=== PATIENT | female | born 1960 | race Caucasian/White ===

== ENCOUNTER 2022-04-06 00:35 | Inpatient (IN) ==
[2022-04-06 01:36] LABS: Urine Bacteria Absent (Absent); Urine Red Blood Cell Trace(0-2/hpf) (Absent); Urine Squamous Epithelial Cell Present (Absent); Urine White Blood Cell Absent (Absent)
[2022-04-06 01:38] LABS: ABS Eosinophils 0.1 10^3/ul (0-0.6); ABS Monocytes 0.7 10^3/ul (0-0.8); ABS Neutrophils 3.6 10^3/ul (1.5-7.7); Eosinophil % 0.9 %; Hematocrit 40 % (35-47); Hemoglobin 13.2 g/dL (12.0-16.0); Lymphocyte % 31.9 %; Mean Corpuscular HGB Conc 33 g/dL (31-36); Mean Corpuscular Hemoglobin 29 pg (27-31); Mean Corpuscular Volume 88 fL (80-97); Mean Platelet Volume 7.2 fL (7.4-10.4); Platelet Count 286 10^3/uL (150-450); Red Cell Distribution Width 13 % (10-15); White Blood Count 6.4 10^3/uL (3.5-10.8)
[2022-04-06 01:43] LABS: Urine Appearance Clear; Urine Bilirubin Negative (Negative); Urine Blood Negative (Negative); Urine Color Yellow; Urine Glucose Negative (Negative); Urine Ketones Negative (Negative); Urine Nitrite Negative (Negative); Urine Protein Negative (Negative); Urine Specific Gravity 1.005 (1.002-1.030); Urine Urobilinogen Negative (Negative)
[2022-04-06 01:50] LABS: Urine Benzodiazepine Screen None Detected (None Detect); Urine Cannabinoids Screen None Detected (None Detect); Urine Opiates Screen None Detected (None Detect)
[2022-04-06 02:09] LABS: ALT 12 U/L (7-52); AST 17 U/L (13-39); Albumin 4.6 g/dL (3.2-5.2); Albumin/Globulin Ratio 2.3 (1-3); Alcohol, S < 13 mg/dL (<13); Alkaline Phosphatase 69 U/L (35-149); Anion Gap 6 mmol/L (2-11); Blood Urea Nitrogen 11 mg/dL (6-24); CO2 Carbon Dioxide 31 mmol/L (22-32); Calcium 9.5 mg/dL (8.6-10.3); Chloride 100 mmol/L (101-111); Creatinine, Serum 0.75 mg/dL (0.51-0.95); Glucose 109 mg/dL (70-100); Potassium 3.6 mmol/L (3.5-5.0); Salicylate < 2.50 mg/dL (<30); Sodium 137 mmol/L (135-145); Total Protein 6.6 g/dL (6.4-8.9); eGFR CKD-EPI 91.7 (>60)
[2022-04-06 02:12] LABS: Acetaminophen < 15 mcg/mL
[2022-04-06 02:22] LABS: TSH Ultra Thyroid Stim Horm 23.43 mcIU/mL (0.34-5.60)
[2022-04-06] MEDS ORDERED: Al Hydrox/Mg Hydrox/Simet LIQ 30 ML UDC PO PRN (10:07)
[2022-04-07] MEDS: Vitamin THERAPEUTIC TAB PO SCH (07:48)
[2022-04-07] MEDS ORDERED: OLANZapine 5 mg TAB *ODT PO PRN (14:15)
[2022-04-08 08:40] LABS: HDL Cholesterol 57.5 mg/dL
[2022-04-08 08:53] LABS: Free T3 3.1 pg/mL (2.5-3.9)
[2022-04-08 08:54] LABS: Free T4 1.05 ng/dL (0.61-1.12)
[2022-04-08 08:59] LABS: Thyroid Peroxidase Antibodies 215.34 IU/mL (<9)
[2022-04-08] MEDS: Vitamin THERAPEUTIC TAB PO SCH ×2 (10:36→13:55)
[2022-04-09] MEDS: Vitamin THERAPEUTIC TAB PO SCH (11:32)
[2022-04-10] MEDS: Vitamin THERAPEUTIC TAB PO SCH (09:06)
[2022-04-11] MEDS: Vitamin THERAPEUTIC TAB PO SCH (09:50)
[2022-04-12] MEDS: Vitamin THERAPEUTIC TAB PO SCH (08:52)
[2022-04-13] MEDS: Vitamin THERAPEUTIC TAB PO SCH (08:42)
[2022-04-13] MEDS: Fluticasone NASAL SPRAY 50MCG 16 gm SPRAY BTL BOTH NARES SCH (19:50)
[2022-04-14] MEDS ORDERED: ARIPiprazole LAUROXIL INITIO 675 MG/2.4 ML SYRINGE IM ONE (08:15)
[2022-04-14] MEDS ORDERED: ARIPiprazole LAUROXIL 662 MG/2.4 ML SYRINGE IM ONE (08:15)
[2022-04-14] MEDS: Fluticasone NASAL SPRAY 50MCG 16 gm SPRAY BTL BOTH NARES SCH (08:51)
[2022-04-14] MEDS: Vitamin THERAPEUTIC TAB PO SCH (09:49)
[2022-04-14 11:42] VITALS: BP 109/74
== END 2022-04-14 17:26 | disposition home or self-care (01) | DRG 751 ==
LOC: ED 00:35 → BSU 09:50 → EDHOLD 09:51 → BSU 10:01
PROVIDERS: ADMIT Psychiatry & Neurology Psychiatry; ATTEND Psychiatry & Neurology Psychiatry

== ENCOUNTER 2024-01-14 11:10 | Observation (INO) ==
[~2024-01-14 11:10] MED LIST: Acetaminophen IV 1 GM/100ML 1,000 MG/100 ML BAG IV ONE; HYDROmorphone 1 MG/1 ML SYRINGE IV PRN; Naloxone 0.4 mg VIAL 0.4 mg/ml 1 ml VIAL IV PRN; Scopolamine 1 mg/72hr PATCH TRANSDERM ONE; fentaNYL 100 mcg/2 ml 50 MCG/ML VIAL IV PRN
[2024-01-14] MEDS ORDERED: Lidocaine 2% PF 5 ML VIAL ONE (12:09)
[2024-01-14] MEDS ORDERED: Ondansetron 4 mg VIAL 2 MG/ML 2 ml VIAL ONE ×2 (12:09→17:42)
[2024-01-14] MEDS ORDERED: Phenylephrine IV 10 MG/ML 1 ml VIAL ONE (12:09)
[2024-01-14] MEDS ORDERED: Propofol 10 MG/ML 20 ML BTL ONE (12:09)
[2024-01-14 12:26] LABS: Rapid COVID-19 Molecular Undetected (Undetected)
[2024-01-14] MEDS ORDERED: ceFAZolin 2 GM PREMIX 2 GM/50 ML BAG ONE (12:38)
[2024-01-14] MEDS: Lactated Ringers 1000 ml BAG 1,000 ML IV SCH (13:03)
[2024-01-14] MEDS: Buffered Lidocaine 1% SYRIN 1 ml INTRADERM ONE (13:04)
[2024-01-14] MEDS ORDERED: Tranexamic Acid 1 GM/100ML BAG 2,000 MG/200 ML BAG IV ONE (13:05)
[2024-01-14] MEDS ORDERED: fentaNYL 100 mcg/2 ml 50 MCG/ML VIAL ONE ×2 (13:13→13:40)
[2024-01-14] MEDS ORDERED: ROPIVACAINE 5 MG/ML 30 ML BTL (0.5%) ONE ×2 (13:13→14:19)
[2024-01-14] MEDS ORDERED: Midazolam 5 mg/5 ml VIAL 1 mg/ml 5 ml VIAL (5 mg) ONE (13:13)
[2024-01-14] MEDS ORDERED: Dexamethasone IV 4 MG/ML VIAL 1 ml VIAL ONE (13:13)
[2024-01-14] MEDS ORDERED: Midazolam 2 mg/2 ml VIAL 1 mg/ml 2 ml VIAL (2 mg) ONE (13:40)
[2024-01-14] MEDS ORDERED: Bupivacaine 0.5% PF 10 ML SDV VIAL INJ ONE (15:07)
[2024-01-14] MEDS ORDERED: Sterile Water for Inj 10 ML ONE (15:23)
[2024-01-14] MEDS ORDERED: Morphine 2 MG/ML SYRINGE IV PRN (15:50)
[2024-01-14] MEDS ORDERED: Calcium Carb (TUMS) 500 mg CHEW TAB PO PRN (15:50)
[2024-01-14] MEDS ORDERED: Lactulose 30 ml UDC PO PRN (15:50)
[2024-01-14] MEDS ORDERED: Magnesium Hydroxide LIQ 30 ML UDC PO PRN (15:50)
[2024-01-14] MEDS ORDERED: Metoclopramide 5 MG/ML VIAL (10 mg) ONE (17:42)
[2024-01-14] MEDS: Ondansetron 4 mg VIAL 2 MG/ML 2 ml VIAL IV PRN (17:44)
[2024-01-14] MEDS ORDERED: Fluticasone NASAL SPRAY 50MCG 16 gm SPRAY BTL INTRANASAL PRN (19:22)
[2024-01-15] MEDS: Lactated Ringers 1000 ml BAG 1,000 ML IV SCH (00:06)
[2024-01-15] MEDS: ceFAZolin 2 GM PREMIX 2 GM/50 ML BAG IV SCH (00:12)
[2024-01-15] MEDS: Ondansetron ODT 4 mg TAB 4 MG TAB PO PRN (01:19)
[2024-01-15] MEDS: Magnesium Hydroxide LIQ 30 ML UDC PO SCH (01:27)
[2024-01-15] MEDS: Lactated Ringers 1000 ml BAG 500 ML IV ONE ×2 (03:47→06:50)
[2024-01-15 05:43] LABS: Hematocrit 33.2 % (35-45); Hemoglobin 11.5 g/dL (11.5-14.3); Mean Platelet Volume 7.6 fL (7.5-11.2); Platelet Count 222 10^3/uL (150-450)
[2024-01-15 06:02] LABS: Calcium 8.7 mg/dL (8.6-10.3); Creatinine, Serum 0.72 mg/dL (0.51-0.95); Potassium 3.8 mmol/L (3.5-5.0); eGFR CKD-EPI 95.1 (>60)
[2024-01-15] MEDS: Vitamin THERAPEUTIC TAB PO SCH (07:37)
[2024-01-15 10:12] VITALS: BP 92/40
== END 2024-01-15 13:35 | disposition home or self-care (01) ==
LOC: OR 11:10 → SSU 11:10
PROVIDERS: ADMIT Orthopaedic Surgery Adult Reconstructive Orthopaedic Surgery; ATTEND Orthopaedic Surgery Adult Reconstructive Orthopaedic Surgery